=== PATIENT | female | born 1995 | race Hispanic/Latino ===

== ENCOUNTER 2020-11-18 02:41 | Emergency (ER) | payer MEDICAID, OTHER ==
[~2020-11-18] VITALS: Ht 177.8 cm; Wt 131.5 kg
[2020-11-18 02:43] VITALS: BP 142/75
[2020-11-18] MEDS ORDERED: ACETAMINOPHEN 325 MG TAB PO ONE (04:00)
[2020-11-18] MEDS ORDERED: ALBU8.5H8 IH (04:12)
[2020-11-18 04:16] VITALS: BP 136/72
== END 2020-11-18 04:20 | disposition home or self-care (01) ==
LOC: EDH 02:41
DX: U07.1 COVID-19 (principal); J06.9 Acute upper respiratory infection, unspecified; J45.909 Unspecified asthma, uncomplicated
CPT/HCPCS: 87635; 87804 ×2; 99283; C9803

== ENCOUNTER 2025-01-04 18:20 | Emergency (ER) | payer OTHER ==
[~2025-01-04] VITALS: Ht 177.8 cm; Wt 114.3 kg
[~2025-01-04 18:20] MED LIST: ALBU8.5H8 IH
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
[2025-01-04 20:50] VITALS: BP 138/72; PULSE 65; RESP 20; TEMP 98.1; O2SAT 100
[2025-01-04] MEDS ORDERED: IBUP-1492 PO (21:02)
[2025-01-04] MEDS ORDERED: CYCL5TAB3 PO (21:02)
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
== END 2025-01-04 21:11 | disposition home or self-care (01) ==
LOC: EDH 18:20
DX: S93.402A Sprain of unspecified ligament of left ankle, initial encounter (principal); V89.2XXA Person injured in unspecified motor-vehicle accident, traffic, initial encounter; Y93.89 Activity, other specified; Y92.89 Other specified places as the place of occurrence of the external cause; Y99.8 Other external cause status
CPT/HCPCS: 70450; 72100; 72125; 73610; 81025; 99284